=== PATIENT | male | born 1940 | race Caucasian/White ===

== ENCOUNTER 2017-07-02 13:09 | Inpatient (IN) | payer MEDICARE ==
[2017-07-02] MEDS ORDERED: Haloperidol Lactate 5 MG/ML VIAL ONE (13:38)
[2017-07-02 13:48] LABS: #Eosinphils 0.1 thou/uL (0.0-0.7); #Monocytes 0.4 thou/uL (0.11-0.59); #Neutrophils 6.3 thou/uL (1.40-6.50); %Basophils 0.2 % (0.0-1.0); %Eosinophils 0.9 % (0.0-10.0); %Lymphocytes 12.5 % (21.0-51.0); %Monocytes 5.1 % (0.0-10.0); %Neutrophils 81.3 % (42.0-75.0); Hemoglobin 11.7 g/dL (14.0-18.0); Mean Corpuscular HGB CONC 32.6 g/dL (32.0-36.0); Mean Corpuscular Hemoglobin 30.7 pg (27.0-31.0); Mean Corpuscular Volume 94.4 fl (80.0-94.0); Mean Platelet Volume 7.4 fL (7.4-10.4); Platelet Count 244 thou/uL (130-400); RBC Distribution Width 13.8 % (11.5-14.5); Red Blood Cell (RBC) Count 3.79 mill/uL (4.70-6.10); White Blood Cell (WBC) Count 7.8 thou/uL (4.8-10.8)
[2017-07-02 14:08] LABS: ALT (SGPT) 9 U/L (8-55); AST (SGOT) 17 U/L (5-34); Albumin 3.3 g/dL (3.4-4.8); Alkaline Phosphatase 70 U/L (40-150); Anion Gap 16 mmol/L (10-20); BUN (Urea Nitrogen) 28 mg/dL (8.4-25.7); Bilirubin, Total 0.6 mg/dL (0.2-1.2); Calc. Creatinine Clearance 0 mL/min (70-130); Calcium 9.2 mg/dL (7.8-10.44); Carbon Dioxide 24 mmol/L (23-31); Chloride 114 mmol/L (98-107); Estimated GFR-MDRD Greater than 90; Globulin 2.3 g/dL (2.4-3.5); Glucose 89 mg/dL (83-110); Potassium 4.1 mmol/L (3.5-5.1); Protein, Total 5.6 g/dL (5.8-8.1); Sodium 150 mmol/L (136-145)
--- NOTE | 2017-07-02 14:14 | CT ---
NONCONTRAST CT HEAD: DATE: 07/02/17. HISTORY: Altered mental status. COMPARISON: None available. FINDINGS: There are scattered areas of decreased attenuation of the periventricular white matter which are nons pecific but likely reflective of chronic small-vessel ischemic changes. There is no evidence of an acute cortical infarction, hemorrhage, mass effect, or midline shift. The re is diffuse cerebral volume loss. The ventricular system is normal in size, shape, and position fo r the degree of sulcal atrophy. There is a suggestion of a small focal area of diminished attenuatio n in the region of the medulla, but this is probably artifactual as there is artifact extending throu gh this region. The visualized paranasal sinuses and mastoid air cells are clear. The calvarial structures are intac t. IMPRESSION: 1. No acute intracranial abnormalities demonstrated. 2. Chronic small-vessel ischemic changes and cerebral volume loss. POS: [facility]
--- NOTE | 2017-07-02 14:25 | RAD ---
CHEST 1 VIEW: Date: 07/02/17 HISTORY: Altered mental status. COMPARISON: Radiograph from 2004. FINDINGS: Lungs are severely hyperinflated. There is a spiculated nodule in the right upper lobe. Calcified granulomas are present throughout the lungs, as well as calcified mediastinal lymph nodes. IMPRESSION: 1. Spiculated nodule right upper lobe concerning for a mass. CT chest recommended. 2. Severe lung hyperinflation indicating obstructive pulmonary disease. CODE LN. CODE T. POS: [facility]
--- NOTE | 2017-07-02 14:39 | RAD ---
TWO VIEWS RIGHT HUMERUS: HISTORY: Right humeral pain. FINDINGS: AP and lateral views of the right humerus obtained. There is an acute fracture in the proximal right humeral neck. No significant angulation seen. The rest of the right humerus is unremarkable. IMPRESSION: Proximal right humeral fracture. POS: [facility]
--- NOTE | 2017-07-02 14:42 | RAD ---
RIGHT ELBOW 2 VIEWS: HISTORY: A 77-year-old male with a history of pain after a fall 1 week ago. FINDINGS: Limited 2-view study of the elbow demonstrates no overt acute fracture or dislocation. If the patient has persistent or worsening right elbow pain, consideration for a followup complete 4- view examination is suggested. IMPRESSION: Mild degenerative changes and bone demineralization. No acute fracture or dislocation. POS: [facility]
--- NOTE | 2017-07-02 14:47 | RAD ---
RIGHT FOREARM 2 VIEWS: HISTORY: A 77-year-old male with a history of forearm pain following a fall. FINDINGS: There is bone demineralization. Minimal arthrosis changes of the elbow joint and wrist joint. No fr acture or dislocation. IMPRESSION: No fracture or dislocation or other acute process. Mild bone demineralization and degenerative shore e. POS: [facility]
[2017-07-02 15:42] LABS: Bilirubin Moderate (Negative); Blood, Urine Negative (Negative); Clarity CLOUDY (Clear); Glucose, Urine (Dipstick) Negative (Negative); Leukocyte Small (Negative); Nitrite Negative (Negative); Protein, Urine (Dipstick) 30 mg/dL (Neg-Trace); Specific Gravity, Urine 1.025 (1.002-1.036)
[2017-07-02 15:45] LABS: Bacteria/HPF None Seen HPF (None Seen); RBC/HPF 0-3 HPF (0-3)
[2017-07-02 15:59] LABS: Hyaline Casts/LPF 0-3 HYALINE CAST LPF (0-3 Hyaline); Other Casts/LPF None Seen LPF (0-3 Hyaline)
[2017-07-02 16:00] LABS: Squamous Epithelial 0-3 HPF (0-3); Transitional Epithelial 0-3 HPF (0-3)
[2017-07-02] MEDS ORDERED: Sodium Chloride 0.9% 1,000 ML IV SCH (17:00)
[2017-07-02] MEDS ORDERED: Acetaminophen 325 MG TAB PO PRN (17:17)
[2017-07-02] MEDS ORDERED: Milk Of Magnesia 30 ML UDCUP PO PRN (17:17)
[2017-07-02] MEDS ORDERED: Bisacodyl 10 MG SUPP PR PRN (17:17)
[2017-07-02] MEDS ORDERED: HYDROcodone/Acetaminophen 5/325 mg Tablet PO PRN (17:17)
--- NOTE | 2017-07-02 17:27 | HP ---
PRIMARY CARE PHYSICIAN: Chelsi Burr M.D. CHIEF COMPLAINT: Fall out of bed and increasing weakness. HISTORY OF PRESENT ILLNESS: Mr. Lynn is a 77-year-old gentleman, who was brought to the hospital b y family after he fell out of the bed and injured his right arm. When he was evaluated in the ER, it was found that he has a fracture of the proximal right humerus. He was also found to be dehydrated and had serum sodium of 150. He is being admitted for further treatment. His says that he has been essentially bedbound for the last week and has not been able to get out of bed. He has not been eating or drinking much, and she has basically been having to hand feed him. He has advanced fede ia and has essentially been going "down" over the last few months and his family also says that his w eight was never more than 120 pounds, but after he had a partial colon resection due to a strangulate d hernia, he has been losing weight ever since. The patient's , who acts as the historian, says that he has not had any fever or chills, no nausea, no vomiting, diarrhea, but has noted some degree of constipation. REVIEW OF SYSTEMS: Unobtainable as the patient has advanced dementia. PAST MEDICAL HISTORY: Significant for COPD and dementia, which has been diagnosed for the last year. PAST SURGICAL HISTORY: He has had a hernia repair x3 and a partial colon resection due to strangulat ed hernia. ALLERGIES: CODEINE. SOCIAL HISTORY: He is a former smoker. He quit about 2 years ago. They said he basically forgot he smokes. He had smoked a pack per day prior to this for at least 60 years. No alcohol use. He is m arried, has two children. His code status is DNR and his surrogate decision makers are his and his 2 children. FAMILY HISTORY: Significant for COPD, emphysema, lung cancer and rectal cancer. CURRENT MEDICATIONS: None. PHYSICAL EXAMINATION: GENERAL: He is awake, but confused. He is basically babbling and singing in the room. He appears t o be in no acute distress. HEENT: His pupils are equal, round, and reactive. Extraocular muscles are intact. Sclerae are anic teric. Throat: He has got dry mucous membranes and also he does have some temporal muscle wasting a nd he is extremely cachectic. NECK: There is no adenopathy. LUNGS: Clear to auscultation. There is no wheezing or rales. CARDIOVASCULAR: He has a normal S1 and S2. I did not appreciate an S3 or S4. No murmurs, clicks or rubs. ABDOMEN: Scaphoid, soft, positive for bowel sounds. There is no rebound, no guarding. EXTREMITIES: There is no edema. NEUROLOGIC: The exam is nonfocal. LABORATORY RESULTS: White blood cell count is 7.8, hemoglobin is 11.7, hematocrit is 35.8, and plate let count is 244. On his chemistry profile, the sodium is reported as being 150. His creatinine was normal. He had an x-ray of the humerus, which showed a proximal fracture. Chest x-ray, there was a possible stipulated a nodule in the right upper lobe and changes consistent with COPD with hyperinfl ation of the lungs. ASSESSMENT AND PLAN: This is a 77-year-old gentleman, who fell out of the bed and fractured his righ t humerus. He was also found to be severely malnourished, cachectic and dehydrated with serum sodium of 150. He will be placed in observation and Orthopedic Surgery will be consulted with regards to t he best way to stabilize the humerus fracture as well as initiating pain control with regards to this . Also, given his dehydration and hypernatremia, he will be placed on fluid resuscitation initially with normal saline and then we will transition to a hypotonic solution. The right upper lobe nodule, I discussed this with the and son, who were at bedside and given his advanced dementia, advance d COPD and overall poor clinical health, they were not interested in any aggressive diagnostic or the rapeutic measures. In fact, the patient's had already planned on discussing hospice care with t he patient's primary care physician at their next visit. I feel that hospice care is appropriate and inquired to her whether or not she would like for us to initiate that here while he is in the hospit al and she was very agreeable to that as she says that she does not believe that she can care for him at home without any additional assistance such as with home health or hospice. Therefore, we will h old off on consulting Pulmonary with regards to the pulmonary nodule and consult case management for hospice evaluation.
[2017-07-02 17:55] LABS: Lactic Acid 1.6 mmol/L (0.5-2.2)
[2017-07-02] MEDS: Sodium Chloride 0.45% 1,000 ML IV SCH ×2 (18:37→19:23)
--- NOTE | 2017-07-02 19:01 | CON ---
DATE OF CONSULTATION: 07/02/2017 REQUESTING PHYSICIAN: Kyle Tellez M.D. CONSULTING PHYSICIAN: Raj Carty M.D. REASON FOR CONSULTATION: Right proximal humerus fracture. BRIEF HISTORY: This is a 77-year-old male who was ambulating from his room around the corner to the bathroom last Sunday, when he lost his balance and fell. The patient lives with his at home. History obtained from family at bedside due to the patient's history of dementia. Per family at beds boby, the patient normally gets around at home without any assistance. He has a history of COPD and d ementia. They state that he has become severely malnourished in the last week, especially since his fall. They brought him to the Emergency Department yesterday. X-rays were taken of his right arm wh ich revealed a proximal humerus fracture. We have been consulted for this reason. They deny any oth er injuries at the time of the fall. They deny any head trauma. They state that he has been localiz ing pain to the right arm. He is right hand dominant. PAST MEDICAL HISTORY: Significant for COPD and dementia. PAST SURGICAL HISTORY: Hernia repair x3 and partial colon resection. ALLERGIES: CODEINE. SOCIAL HISTORY: He is a former smoker, quitting about 2 years ago. No alcohol use. No illicit drug use. He is and has two children. FAMILY HISTORY: Noncontributory. REVIEW OF SYSTEMS: Unable to be obtained secondary to patient's confusion and dementia. PHYSICAL EXAMINATION: VITAL SIGNS: Temperature 97.9, pulse of 87, respiratory rate of 20, blood pressure of 153/74. GENERAL: The patient is awake and alert. He is confused. He is in no acute distress. Family is at bedside. HEENT: Head is normocephalic, atraumatic. NECK: Supple. Breathing is nonlabored. EXTREMITIES: The right upper extremity was evaluated. There is a sling present. The patient does a ppear comfortable at this time. There is a large amount of ecchymosis along the humeral shaft down i nto the elbow. No significant soft tissue swelling. Distal neurovascular status is intact. Remaind er of extremity exam is unremarkable for other injuries. RADIOGRAPHIC FINDINGS: Including 2 views of the right humerus show a humeral neck fracture that appe ars nondisplaced and nonangulated. No other acute findings visualized. ASSESSMENT: Right proximal humerus fracture, nondisplaced. PLAN: This can be treated nonoperatively in a sling for comfort. I did discuss coming out of the sl ing at home so that the patient may move his elbow. He may wean from the sling as tolerated. We jony l control his pain. They can follow up in the Orthopedic Clinic in 2-4 weeks. Plan of care discusse d with the patient and his family at bedside today and they are in agreeance. Thank you for this consultation. Please call Orthopedics if you have any further questions or concer ns.
[2017-07-02] MEDS: Docusate 100 MG CAP PO SCH (19:26)
[2017-07-03] MEDS: Sodium Chloride 0.45% 1,000 ML IV SCH (03:40)
[2017-07-03] MEDS: Morphine 4 MG/ML VIAL SLOW IVP PRN (04:36)
[2017-07-03 06:03] LABS: Anion Gap 17 mmol/L (10-20); BUN (Urea Nitrogen) 25 mg/dL (8.4-25.7); Calc. Creatinine Clearance 36 mL/min (70-130); Calcium 8.7 mg/dL (7.8-10.44); Carbon Dioxide 20 mmol/L (23-31); Chloride 115 mmol/L (98-107); Estimated GFR-MDRD Greater than 90; Glucose 93 mg/dL (83-110); Potassium 3.7 mmol/L (3.5-5.1); Sodium 148 mmol/L (136-145)
[2017-07-03] MEDS: Docusate 100 MG CAP PO SCH ×2 (08:56→19:30)
[2017-07-03 09:56] VITALS: BMI 10.8
[2017-07-03] MEDS ORDERED: Furosemide 40 MG/4 ML VIAL ONE (10:15)
--- NOTE | 2017-07-03 14:31 | PQF ---
CLINICAL DOCUMENTATION IMPROVEMENT CLARIFICATION FORM: ICD-10 Updated PLEASE DO AN ADDENDUM TO THE PROGRESS NOTE WITH ANY DOCUMENTATION UPDATES OR ADDITIONS AND CARRY THROUGH TO DC SUMMARY. THANK YOU. Date: 07/03 ATTN: DR. ANJALI CALDWELL Please exercise your independent, professional judgment in responding to the clarification form. Clinical indicators are provided on the bottom of this form for your review Please check appropriate box(s): [ X ] Protein Calorie Malnutrition: [ ] Mild [ ] Moderate [ X] Severe [ ] Other Malnutrition (please specify) __ [ ] Other diagnosis [ ] Unable to determine CLINICAL INDICATORS - SIGNS / SYMPTOMS / LABS BMI: 10.9 PHYSICIAN H&P DOCUMENTATION 07/02: HX OF PRESENT ILLNESS: PER PATIENT'S HE HAS NOT BEEN EATING OR DRINKING MUCH, AND SHE HAS BASICALLY BEEN HAVING TO HAND FEED HIM. PHYSICAL EXAM: HE HAS SOME TEMPORAL MUSCLE WASTING AND IS EXTREMELY CACHETIC. ASSESSMENT & PLAN: HE WAS FOUND TO BE SEVERELY MALNOURISHED, CACHECTIC & DEHYDRATED ANALYTICS DIRECTOR ASSESSMENT 07/03: FAMILY STATES THE PT HAS "FORGOTTEN HOW TO FEED HIMSELF, AND FORGOTTEN HOW TO SWALLOW'. THE PT HAS HAD A DECREASING APPETITE FOR A LONG TIME, AND HAS GOTTEN TO THE POINT NOW WHERE HE WILL SOMETIMES REFUSE TO EAT/DRINK, SOMETIMES TAKES A BITE AND SPITS IT OUT, OR SOMETIMES EATS 2 BITES AND IS DONE. PHYSICAL FINDINGS: SEVERE MUSCLE WASTING NOTED TO TEMPLES, CLAVICLES, UPPER EXTREMITIES, AND SEVERE FAT WASTING TO RIBS/CHEST, ORBITAL AREA RISK FACTORS: PER FAMILY HAS FORGOTTEN HOW TO FEED HIMSELF & HOW TO SWALLOW ADVANCED DEMENTIA REQUIRES TOTAL FEEDING ASSISTANCE TREATMENT: NUTRITION ASSESSMENT NUTRITIONAL SUPPLEMENT (ENSURE ENLIVE TID) FEEDING ASSISTANCE Moderate Malnutrition (in acute illness) Energy Intake: <75% of estimated energy requirement for > 7 days Weight Loss: 1-2%/1 week; 5%/ 1 month; 7.5%/3 months Other: mild body fat loss; mild muscle mass loss; mild fluid accumulation; Severe Malnutrition (in acute illness) Energy Intake: < 50% of estimated energy requirement for > 5 days Weight Loss: >1-2%/1 week; >5%/1 month; >7.5%/3 months Other: moderate body fat loss; moderate muscle mass loss; moderate- severe fluid accumulation; measurably reduced power manager strength Moderate Malnutrition (in chronic illness) Energy Intake: <75% of estimated energy requirement for >1 month Weight Loss: 5%/1 month; 7.5%/3 months; 10%/6 months; 20%/1 year Other: mild body fat loss; mild muscle mass loss; mild fluid accumulation Severe Malnutrition (in chronic illness) Energy Intake: <75% of estimated energy requirement for >1 month Weight Loss: >5%/1 month; >7.5%/3 months; >10%/6 months; >20%/1 year Other: severe body fat loss; severe muscle mass loss; severe fluid accumulation; measurably reduced power manager strength THANK YOU! Kailyn (This form is maintained as a part of the permanent medical record) 2014 [email or web address]. All Rights Reserved Kailyn Rebollar RN, BSN [email or web address] Office: [phone] [facility] CAMPUSAmanda
--- NOTE | 2017-07-03 14:49 | PDOC.PN ---
- Subjective Encounter Start Date: 07/03/17 Encounter Start Time: 09:40 Pt seen for followup re: hypernatremia. Pt unable to provide any history, unable to complete ROS. Son by bedside, denies any agitation. - Objective Resuscitation Status: Resuscitation Status DNR:Do Not Resuscitate MAR Reviewed: Yes Vital Signs & Weight: Vital Signs (12 hours) Temp Pulse Resp BP BP Pulse Ox 07/03/17 12:00 99.5 F 101 H 20 121/89 100 07/03/17 08:00 97.9 F 89 22 H 96 07/03/17 07:58 97.9 F 89 22 H 123/74 86 L 07/03/17 05:46 97.8 F 94 20 134/76 86 L Weight Admit Weight 67 lb 12.8 oz Weight 67 lb 5 oz I&O: 07/02/17 07/03/17 07/04/17 06:59 06:59 06:59 Intake Total 1000 Balance 1000 Result Diagrams: 07/02/17 13:38 07/03/17 05:23 Phys Exam - Physical Examination Cachectic Dry mucosae Neck: supple Bibasal coarse crackles Cardiovascular: RRR Gastrointestinal: soft Neurological: moves all 4 limbs Psychiatric: normal affect Dx/Plan (1) Hypernatremia Code(s): E87.0 - HYPEROSMOLALITY AND HYPERNATREMIA Status: Acute Comment: Mild improvement (2) Dehydration Code(s): E86.0 - DEHYDRATION Status: Acute Comment: Continue IV fluids (3) Humeral fracture Code(s): S42.309A - UNSP FRACTURE OF SHAFT OF HUMERUS, UNSP ARM, INIT Status: Acute Comment: appreciate orthopedic surgery input (4) Fall Code(s): W19.XXXA - UNSPECIFIED FALL, INITIAL ENCOUNTER Status: Acute (5) Lung nodule Code(s): R91.1 - SOLITARY PULMONARY NODULE Status: Acute (6) Severe protein-calorie malnutrition Code(s): E43 - UNSPECIFIED SEVERE PROTEIN-CALORIE MALNUTRITION Status: Chronic (7) Dementia Code(s): F03.90 - UNSPECIFIED DEMENTIA WITHOUT BEHAVIORAL DISTURBANCE Status: Chronic (8) COPD (chronic obstructive pulmonary disease) Status: Chronic - Plan * . Prognosis guarded, family awaiting hospice consult. Review of Systems - Medications/Allergies Allergies/Adverse Reactions: Allergies Allergy/AdvReac Type Severity Reaction Status Date / Time codeine Allergy Verified 07/02/17 19:22 Medications: Current Medications Acetaminophen (Tylenol) 650 mg PO Q4H PRN PRN Reason: Headache/Fever or Pain Hydrocodone Bitart/Acetaminophen (Bicknell 5/325) 1 tab PO Q4H PRN PRN Reason: Moderate Pain (4-6) Bisacodyl (Dulcolax) 10 mg MT Q24H PRN PRN Reason: Constipation Docusate Sodium (Colace) 100 mg PO BID LUCIANO Last Admin: 07/03/17 08:56 Dose: Not Given Magnesium Hydroxide (Milk Of Magnesium) 30 ml PO DAILYPRN PRN PRN Reason: Constipation Morphine Sulfate (Morphine) 2 mg SLOW IVP Q4H PRN PRN Reason: Pain Last Admin: 07/03/17 04:36 Dose: 2 mg Sodium Chloride (Flush - Normal Saline) 10 ml IVF PRN PRN PRN Reason: Saline Flush
[2017-07-04] MEDS: Morphine 4 MG/ML VIAL SLOW IVP PRN ×2 (05:59→12:35)
[2017-07-04] MEDS: Docusate 100 MG CAP PO SCH (09:54)
--- NOTE | 2017-07-04 14:23 | DIS ---
DATE OF ADMISSION: 07/02/2017 DATE OF DISCHARGE: 07/04/2017 DISCHARGE DIAGNOSES: 1. Right humeral fracture. 2. Severe protein calorie malnutrition. 3. Dehydration. 4. Hypernatremia. 5. Lung nodule. 6. Advanced chronic obstructive pulmonary disease. CONDITION OF PATIENT ON THE DAY OF DISCHARGE: I assessed Mr. Lynn on the day of discharge. He is lying comfortably in bed and nonverbal. S1 and S2 are heard. Lung examination reveals coarse breath sounds. DISCHARGE MEDICATION: Patient to be started on medications by hospice service. HOSPITAL COURSE: Mr. Lynn is a 77-year-old gentleman with dementia and severe protein calorie maln utrition, who was admitted to [facility] on 07/02/2017 following a fall result ing in right humeral fracture. He was seen by Orthopedic Surgery Service and it was recommended that he will be treated nonoperatively in a sling for comfort. After discussion between admitting physic cristino and patient's family, hospice was consulted. He is being discharged home with hospice services o n 07/04/2017. Many thanks for allowing me to participate in your patient's care. Please feel free to contact me wi th any questions or concerns. Please note that patient was also dehydrated and received intravenous fluids during this admission. DISCHARGE DESTINATION: Home with hospice service. TOTAL AMOUNT OF TIME SPENT COORDINATING THIS DISCHARGE: Twenty minutes.
[2017-07-04 16:19] VITALS: BP 123/69; TEMP 97.9
== END 2017-07-04 16:09 | disposition hospice, home (50) | DRG 562 ==
LOC: ERS 13:09 → T4-B 14:56
PROVIDERS: ADMIT Internal Medicine; ATTEND Internal Medicine
DX: S42.201A Unspecified fracture of upper end of right humerus, initial encounter for closed fracture (principal); E43 Unspecified severe protein-calorie malnutrition; E86.0 Dehydration; J44.9 Chronic obstructive pulmonary disease, unspecified; F03.90 Unspecified dementia, unspecified severity, without behavioral disturbance, psychotic disturbance, mood disturbance, and anxiety; Z68.1 Body mass index [BMI] 19.9 or less, adult; E87.1 Hypo-osmolality and hyponatremia; Z90.49 Acquired absence of other specified parts of digestive tract; M62.50 Muscle wasting and atrophy, not elsewhere classified, unspecified site; W06.XXXA Fall from bed, initial encounter; K59.00 Constipation, unspecified; Z87.891 Personal history of nicotine dependence; R91.1 Solitary pulmonary nodule; Z88.5 Allergy status to narcotic agent
CPT/HCPCS: 36415; 51701; 70450; 71045; 80048; 80053; 81003; 81015; 83605; 85025; 93005; 96361; 96374; J1630; J1940; J2270